=== PATIENT | female | born 1985 | race Two or more races ===

== ENCOUNTER → 2019-06-10 | Outpatient (CLI) | payer OTHER ==
[~2019-06-10] MED LIST: KETO10TA2 PO
== END | disposition home or self-care (01) ==
LOC: PRENATAL 08:06
DX: O34.219 Maternal care for unspecified type scar from previous cesarean delivery (principal); O34.41 Maternal care for other abnormalities of cervix, first trimester; O36.80X1 Pregnancy with inconclusive fetal viability, fetus 1; O41.0 Oligohydramnios

== ENCOUNTER → 2019-07-14 | Outpatient (CLI) | payer OTHER | END | disposition home or self-care (01) | LOC: PRENATAL 08:05 | DX: O34.43 Maternal care for other abnormalities of cervix, third trimester (principal); O34.211 Maternal care for low transverse scar from previous cesarean delivery; O36.80X1 Pregnancy with inconclusive fetal viability, fetus 1 ==

== ENCOUNTER → 2019-10-07 | Outpatient (CLI) | payer OTHER | END | disposition home or self-care (01) | LOC: PRENATAL 14:53 | DX: O99.89 Other specified diseases and conditions complicating pregnancy, childbirth and the puerperium (principal); O26.843 Uterine size-date discrepancy, third trimester; O34.211 Maternal care for low transverse scar from previous cesarean delivery ==

== ENCOUNTER → 2019-11-23 | Outpatient (CLI) | payer OTHER | END | disposition home or self-care (01) | LOC: PRENATAL 08:30 | DX: O26.843 Uterine size-date discrepancy, third trimester (principal); O36.8131 Decreased fetal movements, third trimester, fetus 1; O34.211 Maternal care for low transverse scar from previous cesarean delivery; O99.89 Other specified diseases and conditions complicating pregnancy, childbirth and the puerperium ==

== ENCOUNTER 2019-11-27 07:00 | Inpatient (IN) | payer OTHER ==
[~2019-11-27] VITALS: Ht 177.8 cm; Wt 4.1 kg
[2019-11-27] MEDS ORDERED: PRENATAL PO (09:04)
[2019-11-30] MEDS ORDERED: PRENATAL + DHA1 EAC1 PO (08:34)
[2019-12-03] MEDS ORDERED: SIMETHICONE125 M1 PO (07:52)
[2019-12-03] MEDS ORDERED: DOCUSATE SODIU100 MG PO (07:52)
[2019-12-03] MEDS ORDERED: DUI500 PO (07:52)
[2019-12-03] MEDS ORDERED: PREPLUS CA-FE1 EACH PO (07:52)
[2019-12-03] MEDS ORDERED: IBUPROFEN800 MG PO (07:52)
== END 2019-12-03 16:47 | disposition home or self-care (01) | DRG 784 ==
LOC: LDR 11-30 07:00 → O/R 11-30 07:12 → SURG-SUITE 11-30 07:12
PROVIDERS: ADMIT Obstetrics & Gynecology
PROC: 0UB70ZZ Excision of Bilateral Fallopian Tubes, Open Approach (ICD-10-PCS; 2019-11-30)
PROC: 4A1HXCZ Monitoring of Products of Conception, Cardiac Rate, External Approach (ICD-10-PCS; 2019-11-30)
PROC: 3E033VJ Introduction of Other Hormone into Peripheral Vein, Percutaneous Approach (ICD-10-PCS; 2019-11-30)
PROC: 10D00Z1 Extraction of Products of Conception, Low, Open Approach (ICD-10-PCS; principal; 2019-11-30 07:00)
DX: O34.211 Maternal care for low transverse scar from previous cesarean delivery (principal); O98.82 Other maternal infectious and parasitic diseases complicating childbirth; Z30.2 Encounter for sterilization; Z3A.39 39 weeks gestation of pregnancy; Z37.0 Single live birth; B95.1 Streptococcus, group B, as the cause of diseases classified elsewhere